=== PATIENT | male | born 1950 | race Caucasian/White ===

== ENCOUNTER → 2016-12-02 | Day surgery (SDC) | payer OTHER, MEDICARE ==
--- NOTE | 2016-11-30 13:01 | History & Physical Pre-Op ---
General Information and HPI History of Present Illness: Gennaro is a 66-year-old diabetic male with a complaint of a nonhealing ulcer to his left third digit. The patient has undergone an intensive course of local wound care, without any significant improvement. Patient has failed weekly debridements with advanced Biologics. In addition, the patient has required courses of by mouth antibiotics to treat local cellulitis. The patient presents today for preoperative surgical consultation. Allergies/Medications Allergies: Coded Allergies: No Known Allergies (11/27/16) Home Med list Benazepril HCl 5 MG TABLET 1 TAB PO DAILY BP (Reported) Metformin HCl 500 MG TABLET 1 TAB PO BID BP (Reported) Simvastatin (Zocor*) 40 MG TABLET 1 TAB PO DAILY CHOLESTEROL (Reported) Past History Medical History Cardiovascular: hypertension, hyperlipidemia Endocrine: diabetes Surgical History Pertinent Surgical History: appendectomy, laminectomy Review of Systems Review of Systems: Unremarkable except for that noted in history of present illness Exam & Diagnostic Data Physical Exam: Lungs clear bilaterally. Heart sounds rate and rhythm regular. Lower extremity physical exam demonstrates intact pedal pulses bilaterally. Pulses dorsalis pedis and posterior tibial arteries are palpable bilaterally. Patient without any sensory motor deficits. Patient noted to have a Lora grade 2 ulceration overlying the third digit left foot. There is slough overlying a mixed granular necrotic wound bed. No probing or undermining identified. No exposed bone noted. Assessment/Plan Assessment/Plan: Necrotic wound left third toe with fixed digital deformity. A lengthy discussion reviewing both surgical and conservative options was held the patient at bedside and the patient elects to go forward with surgery despite the risks. As Ranked By This Provider Problem List: 1. Non-pressure chronic ulcer of other part of left foot with necrosis of bone Attending MD Review Statement Attending Statement Attending MD Statement: examined this patient
[~2016-12-02] VITALS: Ht 172.7 cm; Wt 106.1 kg
[~2016-12-02] MED LIST: BENAZEPRIL HCL5 MG PO; METFORMIN HCL500 M3 PO; ZOCOR40 M1 PO
--- NOTE | 2016-12-02 10:19 | Operative Report ---
Operative/Inv Procedure Report Surgery Date: 12/02/16 Name of Procedure: 1 incision and drainage deep to the deep fascia with exposure of the extensor tendon and tendon sheath multiple sites left foot 2 bone biopsy left foot 3 closure of open nonhealing ulceration with local random advancement flap 4 intraoperative administration of ankle block anesthesia 5 excisional debridement Pre-Operative Diagnosis: 1 open necrotic and nonhealing wound left foot Post-Operative Diagnosis: The same Estimated Blood Loss: less than 50ml Surgeon/Radiology Teacher: ROULA FAUST DPM Anesthesia: moderate sedation, block Operative/Procedure Note Note: After obtaining informed consent the patient was brought to the operating room and placed on the operating table in the supine position. The patient isn't securely fastened to the operating table utilizing safety belt. After administration of IV sedation, 10 mL of 0.5% Marcaine plain was infiltrated about the patient's left ankle. Left foot and ankle then scrubbed prepped and draped in the usual aseptic manner. Attention directed dorsal aspect of the left foot where necrotic was identified dorsally at the level metatarsal phalangeal joint. A 15 blade was utilized sharply revised skin margins. Dissection was then carried down deep to the D fashion with exposure of the extensor tendon and tendon sheath multiple sites, both proximally and distally. All necrotic nonviable infected tissue sharply evacuated from the wound bed. The 6 was then carried down to the periosteum overlying the middle phalanx which was incised reflected. A sagittal bone saw was utilized to resect the distal half of the proximal phalanx. Specimen was sent for both microbiologic and pathologic inspection. Nipple was then irrigated with 3 L normal sterile saline fissure 50,000 units of bacitracin. Following this the foot was redraped and the surgeon's top pleasure changed clean gloves. Any bleeding vessels identified were cauterized or ligated as encountered. A dorsal rhomboid flap was then developed with extension of the incision lines proximally undermining of the tissues and then rotation towards the open soft tissue defect the cortisone the flap was then secured on the deep side with 4-0 Vicryl. Then the skin edges reapproximated 4-0 nylon. Incision was then dressed with Xeroform 4 x 4's Kerlix and Channing wrap. The patient was noted to tolerate both procedure and anesthesia well and the patient was transported from the operating room to recovery by sent stable best assess intact to the rhomboid flap.
== END ==
LOC: STS 02:03
DX: E11.621 Type 2 diabetes mellitus with foot ulcer (principal); L97.524 Non-pressure chronic ulcer of other part of left foot with necrosis of bone; Z79.84 Long term (current) use of oral hypoglycemic drugs; I10 Essential (primary) hypertension; E78.5 Hyperlipidemia, unspecified; F17.200 Nicotine dependence, unspecified, uncomplicated
CPT/HCPCS: 88304; J2001; J2250